=== PATIENT | female | born 1980 | race Caucasian/White ===

== ENCOUNTER 2016-10-18 19:18 | Emergency (ER) | payer OTHER ==
[2016-10-18 20:54] LABS: BASOPHIL % 0.8 % (0-2); PLATELET COUNT 281 x10^3mcL (130-400); RED CELL DISTRIBUTION WIDTH 12.6 % (11.5-14.5)
[2016-10-18 20:56] LABS: UA SPECIFIC GRAVITY <=1.005 (1.005-1.035); microscopic required? YES; urine erythrocyte TRACE (NEGATIVE)
[2016-10-18 22:54] VITALS: BP 115/77
== END 2016-10-18 22:54 | disposition home or self-care (01) ==
LOC: ED 19:18
PROVIDERS: Emergency Medicine
DX: O26.891 Other specified pregnancy related conditions, first trimester (principal); R10.30 Lower abdominal pain, unspecified; Z3A.08 8 weeks gestation of pregnancy

== ENCOUNTER 2017-10-23 15:23 | Emergency (ER) | payer OTHER ==
[~2017-10-23] VITALS: Ht 157.5 cm; Wt 62.1 kg
[2017-10-23 15:29] VITALS: Ht 157.5 cm; Wt 62.1 kg
[2017-10-23 17:25] VITALS: BP 129/81
== END 2017-10-23 17:25 | disposition home or self-care (01) ==
LOC: ED 15:23
DX: J02.9 Acute pharyngitis, unspecified (principal); N39.0 Urinary tract infection, site not specified; H92.01 Otalgia, right ear; R07.89 Other chest pain